=== PATIENT | male | born 1985 | race Caucasian/White ===

== ENCOUNTER 2017-06-03 16:43 | Inpatient (IN) | payer OTHER ==
[~2017-06-03] VITALS: Ht 182.9 cm; Wt 119.3 kg
--- NOTE | ~2017-06-03 | EKG ---
[address] [place] [address] ELECTROCARDIOGRAM REPORT Name: BLAINE HAN Room #: 433-I ADM IN M.R.#: [id number] Admission: 06/03/17 Attend Phys: Ezekiel Carballo Discharge: Date of : 81 Report #: [id number] THIS REPORT FOR: //name// 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
--- NOTE | ~2017-06-03 | EXE ---
[facility] [employer] [place] [address] STRESS ECHOCARDIOGRAM Name: BLAINE HAN Room #: 433-I ADM IN .R.#: [id number] Admission: 06/03/17 Attend Phys: Ezekiel Geiger Discharge: Date of : 81 Date of Service: 06/04/17 1501 Report #: [id number] THIS REPORT FOR: //name// APPROVED REPORT Exam: Stress Echocardiogram Indication: Chest pain Patient Location: Echo lab Stress Nurse: Janell Ventura RN Room #: 433 Status: routine HR: 53 bpm Rhythm: NSR Medical History Medical History: Chest pain, Bradycardia Cardiac Risk Factors: FHX of CAD, Diabetes (non-insulin) Exercise History: Sedentary Procedure The patient underwent an Exercise Stress Test using the Armond Protocol. Blood pressure, heart rate, and EKG were monitored. An Echocardiogram was performed by asbestos abatement technician in four stages in quad fashion. At peak stress, four selected images were obtained and placed side by side with resting images for comparison. Stress Test Details Stress Test: Exercise stress testing was performed using a Armond protocol. HR Resting HR: 53 bpm Max Heart Rate (APMHR): 186 bpm Max HR Achieved: 184 bpm Target HR (85% APMHR): 158 bpm % of APMHR: 98 Recovery HR: 89 bpm HR response to stress: Normal HR response to stress BP Resting BP: 132/88 mmHg Max BP: 188/92 mmHg Recovery BP: 132/76 mmHg ECG Resting ECG: Sinus Rhythm Stress ECG: Sinus Tachycardia [facility] [address] [place] [address] STRESS ECHOCARDIOGRAM Name: BLAINE HAN Room #: 433-I [facility]#: [id number] Admission: 06/03/17 Attend Phys: Ezekiel Geiger Discharge: Date of : 81 Date of Service: 06/04/17 1501 Report #: [id number] Arrhythmia: None Recovery ECG: Sinus Rhythm Clinical Reason for Termination: Maximal effort Exercise duration: 6 min 55 sec Highest Stage Achieved: Stage 3: 3.4 mph at 14% grade. Exercise capacity: 10 METs Overall Exercise Capacity for Age: Average Stress ECG Conclusion 1. SUBJECTIVELY NEGATIVE FOR ISCHEMIA 2. ELECTROCARDIOGRAPHICALLY NEGATIVE FOR ISCHEMIA Pre-Stress Echo The resting Echocardiogram showed normal left ventricular contractility with an estimated Ejection Fraction of about 55-60%. Normal wall motion in all segments on baseline images. Post-Stress Echo The stress Echocardiogram showed normal left ventricular contractility with an estimated Ejection Fraction of about 65-70%. Normal augmentation of wall motion in all segments on post stress images. Clinical Normal augmentation of myocardial wall segments using a 17 segment model. No clinical or ECG evidence for ischemia. Conclusion Clinical Response: Non-ischemic Exercise Capacity: Average Stress ECG Response: Non-ischemic Stress Echo Images: Non-ischemic 1. LOW RISK STUDY No prior study available for comparison. Other Information Study Quality: Good [facility] [address] [place] [address] STRESS ECHOCARDIOGRAM Name: BLAINE HAN Room #: 433-I ADM IN M.R.#: [id number] Admission: 06/03/17 Attend Phys: Ezekiel Gegier Discharge: Date of : 81 Date of Service: 06/04/17 1501 Report #: [id number] <Conclusion> 1. LOW RISK STUDY <ELECTRONICALLY SIGNED> By: Jose Schulte MD 06/04/17 1501 1501 00 Jose Schulte MD /INF
[2017-06-03 16:43] VITALS: BP 146/84
[2017-06-03] MEDS ORDERED: VENTOLIN HFA 1818 GM INH (16:52)
[2017-06-03] MEDS ORDERED: VITAMIN D 5050000 I1 PO (16:52)
[2017-06-03] MEDS ORDERED: SINGULAIR 10 MG10 M1 PO (16:53)
[2017-06-03 17:05] LABS: ABSOLUTE NEUTROPHILS 4.1 thou/uL (1.4-8.2); BASOPHILS 1.2 % (0.0-2.0); EOSINOPHILS 3.3 % (0.0-3.0); HEMATOCRIT 45.1 % (42.0-52.0); HEMOGLOBIN 15.4 gm/dL (14.0-18.0); LYMPHOCYTES 42.5 % (24.0-44.0); MCH 30.4 pg (26.0-34.0); MCHC 34.2 g/dL (28.0-37.0); MONOCYTES 10.3 % (1.0-8.0); PLATELET COUNT 231 thou/uL (150-400); POLYS 42.7 % (36.0-66.0); RBC 5.06 mil/uL (4.50-6.00); RDW 13.6 % (10.5-14.5); WBC 9.6 thou/uL (4.0-11.0)
[2017-06-03 17:08] LABS: MANUAL DIFF NO
[2017-06-03 17:17] LABS: ANION GAP 10 mmol/L (7-16); BUN 12 mg/dL (7-18); CALCIUM 8.9 mg/dL (8.5-10.1); CHLORIDE 105 mmol/L (98-107); CO2 25 mmol/L (21-32); CREATININE 1.2 mg/dL (0.7-1.3); GLUCOSE 98 mg/dL (74-106); POTASSIUM 3.7 mmol/L (3.5-5.1); SODIUM 140 mmol/L (136-145)
[2017-06-03 17:33] LABS: NT-PRO BRAIN NAT PEPTIDE 162 pg/mL (<300); TROPONIN-I < 0.04 ng/mL (<0.04-0.07)
[2017-06-03 20:33] VITALS: BP 129/88
[2017-06-03 20:55] VITALS: BP 127/81
[2017-06-03] MEDS ORDERED: BENADRYL25 MG PO (22:15)
[2017-06-03] MEDS ORDERED: HYDROXYZINE HCL25 M2 PO (22:18)
[2017-06-03 23:55] VITALS: BP 121/74
[2017-06-03 23:57] VITALS: BP 129/75
[2017-06-03 23:59] VITALS: BP 134/87
[2017-06-04 03:00] VITALS: BP 112/59
[2017-06-04 03:45] LABS: ANION GAP 7 mmol/L (7-16); BUN 12 mg/dL (7-18); CALCIUM 8.7 mg/dL (8.5-10.1); CHLORIDE 106 mmol/L (98-107); CO2 28 mmol/L (21-32); CREATININE 1.3 mg/dL (0.7-1.3); GLUCOSE 92 mg/dL (74-106); SODIUM 141 mmol/L (136-145)
[2017-06-04 03:47] LABS: SERUM ASSESSMENT Clear
[2017-06-04 03:52] LABS: HEMATOCRIT 41.2 % (42.0-52.0); HEMOGLOBIN 14.2 gm/dL (14.0-18.0); MCH 30.4 pg (26.0-34.0); MCHC 34.5 g/dL (28.0-37.0); MCV 88.3 fL (80.0-100.0); RBC 4.67 mil/uL (4.50-6.00); RDW 13.3 % (10.5-14.5); WBC 8.6 thou/uL (4.0-11.0)
[2017-06-04 03:54] LABS: CHOLESTEROL 168 mg/dL (<200); HDL CHOLESTEROL 23 mg/dL (>40); LDL CHOLESTEROL 103 mg/dL (<100); TC:HDL 7.3 Ratio (Not establshd); TRIGLYCERIDE 213 mg/dL (<150); TROPONIN-I < 0.04 ng/mL (<0.04-0.07); VLDL 43 mg/dL (<40)
[2017-06-04 07:47] VITALS: BP 127/70
[2017-06-04 16:14] VITALS: BP 127/70
[2017-06-04 19:12] VITALS: BP 131/74
[2017-06-05 05:32] VITALS: BP 119/77
[2017-06-05 08:18] VITALS: BP 125/71
[2017-06-05 14:20] VITALS: BP 125/71
== END 2017-06-05 16:12 | disposition home or self-care (01) | DRG 313 ==
LOC: ER 16:43 → 4S 19:26 → EROBS 19:26 → 4S 20:53
PROVIDERS: Nurse Practitioner; Nurse Practitioner Family
DX: R07.89 Other chest pain (principal); F17.210 Nicotine dependence, cigarettes, uncomplicated; J45.909 Unspecified asthma, uncomplicated; F41.9 Anxiety disorder, unspecified; F43.10 Post-traumatic stress disorder, unspecified; Z71.6 Tobacco abuse counseling; Z82.3 Family history of stroke; Z82.49 Family history of ischemic heart disease and other diseases of the circulatory system; Z91.018 Allergy to other foods; Z88.8 Allergy status to other drugs, medicaments and biological substances; Z88.0 Allergy status to penicillin; Z91.013 Allergy to seafood; Z91.048 Other nonmedicinal substance allergy status
CPT/HCPCS: 10100

== ENCOUNTER 2017-08-24 06:19 | Emergency (ER) | payer OTHER ==
[~2017-08-24] VITALS: Ht 180.3 cm; Wt 117.0 kg
--- NOTE | ~2017-08-24 | EKG ---
[place] [address] [facility] [place] [address] ELECTROCARDIOGRAM REPORT Name: BLAINE HAN Room #: DEP Ramona#: [id number] Admission: 08/24/17 Attend Phys: Discharge: 08/24/17 Date of : 81 Report #: [id number] THIS REPORT FOR: //name// 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 : 1985 Requested By: Ann Marie Ledesma Order Number: [id number] MD: Ian Newman Measurements Intervals [place] Rate: 74 P: 32 NV: 154 QRS: 18 QRSD: 88 T: 25 QT: 371 QTc: 412 Interpretive Statements Sinus rhythm Low voltage, precordial leads Baseline wander in lead(s) II,aVR Compared to ECG 06/03/2017 16:45:20 Low QRS voltage now present Sinus bradycardia no longer present Electronically Signed On 08-24-2017 15:21:27 CDT by Ian Newman [email or web address] <ELECTRONICALLY SIGNED> By: Ian Newman MD 08/24/17 1521 0632 0632 Ian Newman MD /EPI
[~2017-08-24 06:19] MED LIST: BENADRYL25 MG PO; HYDROXYZINE HCL25 M2 PO; SINGULAIR 10 MG10 M1 PO; VENTOLIN HFA 1818 GM INH; VITAMIN D 5050000 I1 PO
[2017-08-24 07:11] LABS: ABSOLUTE NEUTROPHILS 3.9 thou/uL (1.4-8.2); BASOPHILS 0.2 % (0.0-2.0); EOSINOPHILS 4.1 % (0.0-3.0); HEMATOCRIT 43.3 % (42.0-52.0); HEMOGLOBIN 15.2 gm/dL (14.0-18.0); LYMPHOCYTES 38.7 % (24.0-44.0); MCH 30.8 pg (26.0-34.0); MCHC 35.1 g/dL (28.0-37.0); MCV 87.8 fL (80.0-100.0); MONOCYTES 10.9 % (1.0-8.0); PLATELET COUNT 232 thou/uL (150-400); POLYS 46.1 % (36.0-66.0); RBC 4.93 mil/uL (4.50-6.00); WBC 8.5 thou/uL (4.0-11.0)
[2017-08-24 07:14] LABS: MANUAL DIFF NO
[2017-08-24 07:33] LABS: ANION GAP 8 mmol/L (7-16); BUN 11 mg/dL (7-18); CALCIUM 9.1 mg/dL (8.5-10.1); CHLORIDE 107 mmol/L (98-107); CO2 24 mmol/L (21-32); GLUCOSE 112 mg/dL (74-106); POTASSIUM 4.2 mmol/L (3.5-5.1); SODIUM 139 mmol/L (136-145)
[2017-08-24 07:41] LABS: TROPONIN-I < 0.04 ng/mL (<0.04-0.07)
[2017-08-24] MEDS ORDERED: PRILOSEC OTC20 MG PO (09:25)
== END 2017-08-24 09:53 | disposition home or self-care (01) ==
LOC: ER 06:19
PROVIDERS: Emergency Medicine
DX: R07.89 Other chest pain (principal); J45.909 Unspecified asthma, uncomplicated; F32.9 Major depressive disorder, single episode, unspecified; F41.9 Anxiety disorder, unspecified; E78.00 Pure hypercholesterolemia, unspecified; F43.10 Post-traumatic stress disorder, unspecified; F17.210 Nicotine dependence, cigarettes, uncomplicated; F10.99 Alcohol use, unspecified with unspecified alcohol-induced disorder; Z88.0 Allergy status to penicillin; Z91.018 Allergy to other foods; Z91.013 Allergy to seafood; Z91.030 Bee allergy status; Z88.8 Allergy status to other drugs, medicaments and biological substances

== ENCOUNTER 2019-01-19 19:32 | Emergency (ER) | payer BC, OTHER ==
[~2019-01-19] VITALS: Ht 182.9 cm; Wt 127.0 kg
[~2019-01-19 19:32] MED LIST changes: +PRILOSEC OTC20 MG PO
[2019-01-19] MEDS ORDERED: PREDNISONE 20 M20 MG PO (21:35)
[2019-01-19] MEDS ORDERED: NEBULIZER MISCELL (21:39)
[2019-01-19] MEDS ORDERED: PROMETH-CODEIN 65 ML PO (21:39)
[2019-01-19] MEDS ORDERED: ALBUTEROL2.5 MG/31 INH (21:39)
[2019-01-19] MEDS ORDERED: DOXYCYCLINE 10100 MG PO (21:39)
[2019-01-19 21:55] VITALS: BP 148/89
== END 2019-01-19 21:56 | disposition home or self-care (01) ==
LOC: ER 19:32
DX: J45.901 Unspecified asthma with (acute) exacerbation (principal); F41.9 Anxiety disorder, unspecified; F32.9 Major depressive disorder, single episode, unspecified; E78.5 Hyperlipidemia, unspecified; F17.210 Nicotine dependence, cigarettes, uncomplicated; Z88.0 Allergy status to penicillin; Z91.030 Bee allergy status; Z91.02 Food additives allergy status; Z91.013 Allergy to seafood; Z91.09 Other allergy status, other than to drugs and biological substances; Z88.8 Allergy status to other drugs, medicaments and biological substances

== ENCOUNTER 2020-07-02 02:29 | Emergency (ER) | payer OTHER ==
[~2020-07-02] VITALS: Ht 182.9 cm; Wt 136.1 kg
[~2020-07-02 02:29] MED LIST changes: +ALBUTEROL2.5 MG/31 INH; +DOXYCYCLINE 10100 MG PO; +NEBULIZER MISCELL; +PREDNISONE 20 M20 MG PO; +PROMETH-CODEIN 65 ML PO
[2020-07-02] MEDS ORDERED: CHILDREN'S ASPI81 M1 PO (02:51)
[2020-07-02 03:13] LABS: URINE BILIRUBIN NEGATIVE (Negative); URINE BLOOD NEGATIVE (Negative); URINE CLARITY CLEAR; URINE COLOR YELLOW; URINE GLUCOSE-RANDOM* NEGATIVE (Negative); URINE KETONES NEGATIVE (Negative); URINE LEUKOCYTES-REFLEX NEGATIVE (Negative); URINE NITRITE-REFLEX NEGATIVE (Negative); URINE PROTEIN (DIPSTICK) NEGATIVE (Negative); URINE SPECIFIC GRAVITY 1.015 (1.005-1.035); URINE UROBILINOGEN 0.2 E.U./dl (0.2-1.0)
[2020-07-02 03:21] LABS: AMP/METHAMP Negative (Negative); BARBITURATES Negative (Negative); BENZODIAZEPINES Negative (Negative); COCAINE Negative (Negative); METHADONE Negative (Negative); OPIATES Negative (Negative); PCP Negative (Negative)
[2020-07-02 03:41] LABS: ABSOLUTE NEUTROPHILS 6.4 thou/uL (1.4-8.2); BASOPHILS 0.3 % (0.0-2.0); EOSINOPHILS 1.6 % (0.0-3.0); HEMATOCRIT 45.4 % (42.0-52.0); HEMOGLOBIN 15.4 gm/dL (14.0-18.0); LYMPHOCYTES 27.5 % (24.0-44.0); MCH 31.5 pg (26.0-34.0); MCV 92.7 fL (80.0-100.0); MONOCYTES 9.4 % (1.0-8.0); PLATELET COUNT 249 thou/uL (150-400); POLYS 61.2 % (36.0-66.0); RBC 4.89 mil/uL (4.50-6.00); RDW 13.4 % (10.5-14.5); WBC 10.5 thou/uL (4.0-11.0)
[2020-07-02 03:46] LABS: ANION GAP 15 mmol/L (7-16); BUN 16 mg/dL (7-18); CALCIUM 8.2 mg/dL (8.5-10.1); CHLORIDE 103 mmol/L (98-107); CO2 19 mmol/L (21-32); CREATININE 1.2 mg/dL (0.7-1.3); GLUCOSE 117 mg/dL (74-106); POTASSIUM 3.8 mmol/L (3.5-5.1); SODIUM 137 mmol/L (136-145)
[2020-07-02 03:49] LABS: ALBUMIN 3.7 g/dL (3.4-5.0); SALICYLATE 2.9 mg/dL (2.8-20.0); SGOT 21 U/L (15-37); SGPT 27 U/L (30-65); TOTAL BILIRUBIN 0.3 mg/dL (0.2-1.0); TOTAL PROTEIN 7.9 g/dL (6.4-8.2)
[2020-07-02 04:24] LABS: MAGNESIUM 1.9 mg/dL (1.8-2.4); TROPONIN-I <0.06 ng/mL (<0.06)
[2020-07-02 20:34] VITALS: BP 143/90
--- NOTE | 2020-07-04 08:36 | EKG ---
[facility] [place] [address] ELECTROCARDIOGRAM REPORT Name: BLAINE HAN [id number] Admission: 07/02/20 Attend Phys: Discharge: 07/02/20 Date of : 81 Report #: [id number] THIS REPORT FOR: cc: [facility] - Clinic physician unknown [facility] - Clinic physician unknown Brendan Long MD [facility] ~ THIS REPORT FOR: //name// [facility] ED Test Date: 2020-07-02 Test Time: 05:42:26 Pat Name: BLAINE HAN Department: Room: Gender: M 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: : 1985 Requested By: Hipolito Sandoval Order Number: [id number] MD: Brendan Long Measurements Intervals [place] Rate: 95 P: 41 [place]: 138 QRS: 15 QRSD: 88 T: 26 QT: 349 QTc: 439 Interpretive Statements Sinus rhythm RSR' in V1 or V2, probably normal variant Compared to ECG 08/24/2017 06:32:39 No significant change was found Electronically Signed On 07-04-2020 8:31:46 CDT by Brendan Long [email or web address] <ELECTRONICALLY SIGNED> By: Brendan Long MD, [facility] 07/04/20 0831 0542 0542 Brendan Long MD, [facility] /EPI
== END 2020-07-02 20:35 | disposition short-term general hospital (02) ==
LOC: ER 02:29
PROVIDERS: Emergency Medicine
DX: R45.851 Suicidal ideations (principal); F10.129 Alcohol abuse with intoxication, unspecified; J45.909 Unspecified asthma, uncomplicated; F32.9 Major depressive disorder, single episode, unspecified; F41.9 Anxiety disorder, unspecified; F17.210 Nicotine dependence, cigarettes, uncomplicated; Z20.828 Contact with and (suspected) exposure to other viral communicable diseases; Z79.899 Other long term (current) drug therapy; Z88.0 Allergy status to penicillin; Z88.8 Allergy status to other drugs, medicaments and biological substances; Z91.018 Allergy to other foods; Z91.013 Allergy to seafood; Z91.030 Bee allergy status; Y90.4 Blood alcohol level of 80-99 mg/100 ml